=== PATIENT | female | born 1990 | race Hispanic/Latino ===

== ENCOUNTER 2019-07-29 14:20 | Emergency (ER) | payer BC, SELFPAY ==
--- NOTE | 2019-07-29 14:35 | ED.WOUNDLAC ---
HPI - Wound/Laceration General Chief Complaint: Wound/Laceration Stated Complaint: Cut on Right 3rd Finger Time Seen by Provider: 07/29/19 14:45 Source: patient and RN notes reviewed Mode of arrival: ambulatory Limitations: no limitations History of Present Illness HPI narrative: 29-year-old male presents with concern for laceration to the third digit of the right hand. Reports she was washing dishes and broke a glass and cut her finger. Patient reports tetanus is up-to-date Extremity Location: Right: hand Related Data Home Medications Medication Instructions Recorded Confirmed Unable to Obtain Home Medications 07/29/19 07/29/19 Allergies Allergy/AdvReac Type Severity Reaction Status Date / Time amoxicillin Allergy Unknown Verified 07/29/19 14:45 Review of Systems Review of Systems: Narrative: CONSTITUTIONAL: Denies malaise, chills, sweats, or fever. SKIN: Reports laceration to the third digit of the right hand MUSCULOSKELETAL: Denies decreased range of motion, strength NEUROLOGIC: Reports slight numbness to the tip of the digit All systems reviewed & are unremarkable except as noted in HPI and below PMFSH Comments At time of signature, agree with nursing past medical, surgical, social and family history. There is no relevant family history pertinent to the presenting complaint Exam Narrative: Exam Narrative: GENERAL: Well-appearing, well-nourished, and in no acute distress. HEAD: Normocephalic, atraumatic. EYES: PERRLA, conjunctivae clear NECK: Supple. CHEST: Speaks in full sentences. No respiratory distress. HEART: Regular rate and rhythm. Normal and equal peripheral pulses. EXTREMITIES: Right and digits of hand have normal strength. 5/5 strength with digit flexion, extension. Range of motion normal. No clubbing, cyanosis, or edema noted. No tenderness. Skin intact. Normal digital cascade with flexion of fingers, median, ulnar and radial nerve intact. Normal sensation of each side of finger. Can perform 'okay' sign, 'cross over finger test of index and middle fingers' and 'thumbs up' sign. No scissoring. Normal thumb opposition. Good capillary refill and radial pulse. Distal capillary refill ?3 seconds. SKIN: Warm, dry, no rash. 3.5 cm L-shaped laceration noted to the palmar aspect of the third digit of the right hand over the PIP joint NEURO: Alert and oriented x3. PSYCH: Normal mood and affect Course Course Emergency Course: Patient is aware of diagnosis, understands and agrees to treatment plan. Anticipatory guidance given. Patient agrees to follow-up as directed and is aware of reasons to seek care at the emergency department. Portions of this record may have been created with voice recognition software Vital Signs Vital signs: Vital Signs Temperature 99.3 F 07/29/19 14:40 Pulse Rate 76 07/29/19 14:40 Respiratory Rate 16 07/29/19 14:40 Blood Pressure 135/71 07/29/19 14:40 Pulse Oximetry 100 07/29/19 14:40 Temperature 99.3 F 07/29/19 14:40 Pulse Rate 76 07/29/19 14:40 Respiratory Rate 16 07/29/19 14:40 Blood Pressure 135/71 07/29/19 14:40 Pulse Oximetry 100 07/29/19 14:40 Reviewed. Patient has been instructed to follow up with her primary care provider within the next week regarding her elevated blood pressure today. Procedures Laceration Laceration 1: Date: 07/29/19 Time: 14:50 Site: hand Side (If applicable): right Size (cm): 3.5 Description: irregular (L shaped) Depth: simple, single layer Local Anesthetic: lidocaine 1% Amount of anesthesia used (mL): 2 Pre-repair: wound explored, irrigated and irrigated extensively ====== Skin Level ====== Skin layer closed with: nylon Size (cm): 5-0 Number of sutures: 7 Technique: simple, interrupted ====== Subcutaneous Layer ====== ====== Muscle Layer ====== ====== Tendon Layer ====== MDM - Wound/L
[2019-07-29 14:40] VITALS: BP 135/71; PULSE 76; RESP 16; TEMP 37.4; O2SAT 100
== END 2019-07-29 15:41 | disposition home or self-care (01) ==
PROVIDERS: Emergency Provider Nurse Practitioner; PCP Registered Nurse
DX: S61.212A Laceration without foreign body of right middle finger without damage to nail, initial encounter (principal); W25.XXXA Contact with sharp glass, initial encounter
CPT/HCPCS: 12002; 99202; G0463